=== PATIENT | female | born 1965 | race Caucasian/White ===

== ENCOUNTER 2017-01-01 14:59 | Emergency (ER) | payer MEDICAID ==
[~2017-01-01] VITALS: Ht 167.6 cm; Wt 96.0 kg
[2017-01-01] MEDS ORDERED: ACETAMINOPHEN 500MG TABLET PO ONE (17:00)
[2017-01-01 18:29] VITALS: BP 138/78
== END 2017-01-01 18:32 | disposition home or self-care (01) ==
LOC: ER 16:19
DX: R06.00 Dyspnea, unspecified (principal); R42 Dizziness and giddiness; F41.9 Anxiety disorder, unspecified; Z90.49 Acquired absence of other specified parts of digestive tract
CPT/HCPCS: 71010; 81025; 99283

== ENCOUNTER 2025-06-13 23:55 | Emergency (ER) | payer MEDICAID ==
[~2025-06-13] VITALS: Ht 162.6 cm; Wt 123.0 kg
[2025-06-14] MEDS: ALBUTEROL (0.083%) 2.5MG/3ML NEB HHN ONE (01:30)
[2025-06-14] MEDS: PREDNISONE 20MG TABLET PO ONE (01:39)
[2025-06-14] MEDS: IBUPROFEN 600MG TABLET PO ONE (01:39)
[2025-06-14 01:55] VITALS: PULSE 78; RESP 20; O2SAT 96
[2025-06-14] MEDS ORDERED: AZIT250T12 PO ×2 (02:28→11:47)
[2025-06-14] MEDS ORDERED: PSEU120T56 MT ×2 (02:28→11:47)
[2025-06-14] MEDS ORDERED: P50 MT ×2 (02:28→11:47)
[2025-06-14] MEDS ORDERED: ALBU18HF2 IH ×2 (02:28→11:47)
[2025-06-14] MEDS: AZITHROMYCIN 500 MG TABLET PO ONE (02:57)
[2025-06-14 02:59] VITALS: BP 107/72; PULSE 81; RESP 20; TEMP 36.8; O2SAT 95
[2025-06-14 03:27] LABS: INFLUENZA TYPE A Presumptive Negative (Pres. Neg.)
[2025-06-14 03:29] LABS: INFLUENZA TYPE B Presumptive Negative (Pres. Neg.)
== END 2025-06-14 03:02 | disposition home or self-care (01) ==
LOC: ER 23:55
DX: R05.9 Cough, unspecified (principal); R07.9 Chest pain, unspecified; R06.2 Wheezing; I10 Essential (primary) hypertension; E11.9 Type 2 diabetes mellitus without complications; E78.00 Pure hypercholesterolemia, unspecified; Z87.442 Personal history of urinary calculi; Z90.49 Acquired absence of other specified parts of digestive tract; Z20.822 Contact with and (suspected) exposure to COVID-19
CPT/HCPCS: 99284; 87804 ×2; 71045; 94640; 87426; J7512; Z7610 ×3

== ENCOUNTER 2025-07-17 12:06 | Emergency (ER) | payer OTHER, MEDICAID ==
[~2025-07-17] VITALS: Ht 172.7 cm; Wt 100.0 kg
[~2025-07-17 12:06] MED LIST: ALBU18HF2 IH; AZIT250T12 PO; P50 MT; PSEU120T56 MT
[2025-07-17] MEDS ORDERED: DEXAMETHASONE 4MG TABLET PO ONE (13:15)
[2025-07-17] MEDS ORDERED: ACETAMINOPHEN 325MG TABLET PO ONE (13:15)
[2025-07-17] MEDS ORDERED: DEXAMETHASONE 1 MG/ML ORAL SYR PO ONE (13:45)
[2025-07-17] MEDS: ALBUTEROL (0.083%) 2.5MG/3ML NEB HHN SCH (14:37)
[2025-07-17] MEDS: IPRATROPIUM BROMIDE (0.02%) 0.5MG/2.5ML NEB HHN SCH (14:37)
[2025-07-17 14:38] VITALS: PULSE 81; RESP 18; O2SAT 95
[2025-07-17 14:56] VITALS: PULSE 85; RESP 18; O2SAT 98
[2025-07-17 15:28] VITALS: PULSE 88; RESP 18; O2SAT 99
[2025-07-17] MEDS: ONDANSETRON 4MG ODT PO SCH (15:35)
[2025-07-17] MEDS: ONDANSETRON 4MG ODT PO ONE (15:35)
[2025-07-17] MEDS: ACETAMINOPHEN 325MG TABLET PO SCH (15:35)
[2025-07-17] MEDS: DEXAMETHASONE 10 MG/ML VIAL PO SCH (15:35)
[2025-07-17 15:36] LABS: BASOPHILS % 0.6 % (0.0-2.0); EOSINOPHILS % 5.0 % (0.0-5.0); HEMATOCRIT. 40.0 % (36.0-48.0); HEMOGLOBIN. 13.0 g/dL (12.0-16.0); LYMPHOCYTES % 36.6 % (20.0-50.0); MEAN PLATELET VOLUME 7.8 fl (7.4-10.4); MONOCYTES % 8.7 % (2.0-8.0); NEUTROPHILS % 49.1 % (40.0-76.0); PLATELET 300 x1000/uL (130-400); RED BLOOD CELL COUNT 5.01 mill/uL (4.2-5.4); RED CELL DISTRIBUTION WIDTH 15.7 % (11.6-14.6)
[2025-07-17 15:44] LABS: INFLUENZA TYPE A Presumptive Negative (Pres. Neg.)
[2025-07-17 15:45] LABS: INFLUENZA TYPE B Presumptive Negative (Pres. Neg.); RESPIRATORY SYNCYTIAL VIRUS Not Detected (Not Detectd)
[2025-07-17 15:51] LABS: CREATININE 0.9 mg/dL (0.6-1.0); UREA NITROGEN BLOOD 6 mg/dL (9-23)
[2025-07-17 15:53] LABS: ASPARTATE AMINOTRANSFERASE 17 IU/L (<34); BILIRUBIN DIRECT < 0.1 mg/dL (<=3.0); BILIRUBIN TOTAL 0.3 mg/dL (0.1-1.0)
[2025-07-17 15:54] LABS: PROTEIN TOTAL 7.4 g/dL (6.0-8.3)
[2025-07-17] MEDS ORDERED: BENZ200C52 MT (16:52)
[2025-07-17] MEDS ORDERED: PSEU60TA95 MT (16:54)
[2025-07-17 18:28] LABS: CLARITY URINE CLOUDY (CLEAR); COLOR URINE DARK YELLOW (YELLOW); GLUCOSE URINE NEGATIVE (NEGATIVE); KETONES URINE 1+ (NEGATIVE); LEUKOCYTE ESTERASE URINE NEGATIVE (NEGATIVE); NITRITE URINE NEGATIVE (NEGATIVE); OCCULT BLOOD URINE NEGATIVE (NEGATIVE); PH URINE 5.5 (4.5-8.0); PROTEIN URINE 1+ (NEGATIVE); SPECIFIC GRAVITY URINE 1.029 (1.005-1.030); UROBILINOGEN URINE 1.0 E.U./dL (0.2-1.0)
[2025-07-17 18:52] VITALS: BP 144/90; PULSE 85; RESP 19; TEMP 36.7; O2SAT 97
[2025-07-17 18:54] LABS: BACTERIA URINE 1+; RBC URINE 0-2 /hpf (0-2); SQUAMOUS EPITHELIAL CELL URINE FEW /lpf (RARE/1+); WBC URINE 0-2 /hpf (0-2)
== END 2025-07-17 18:58 | disposition home or self-care (01) ==
LOC: ER 12:06
DX: K57.30 Diverticulosis of large intestine without perforation or abscess without bleeding (principal); N20.0 Calculus of kidney; J06.9 Acute upper respiratory infection, unspecified; B97.89 Other viral agents as the cause of diseases classified elsewhere; R10.10 Upper abdominal pain, unspecified; R11.2 Nausea with vomiting, unspecified; E11.9 Type 2 diabetes mellitus without complications; I10 Essential (primary) hypertension; E78.00 Pure hypercholesterolemia, unspecified; E66.01 Morbid (severe) obesity due to excess calories; Z68.33 Body mass index [BMI] 33.0-33.9, adult; Z90.49 Acquired absence of other specified parts of digestive tract; Z20.822 Contact with and (suspected) exposure to COVID-19
CPT/HCPCS: 80076; 80048; 81003; 83690; 85025; 87420; 87804 ×2; 36415; 71045; 74176; 76705; 94640; 99284; 87426; Q0162; J1100; Z7610 ×3; 94070; J8540